=== PATIENT | female | born 1960 | race Caucasian/White ===

== ENCOUNTER → 2017-10-03 | Outpatient (CLI) | payer BC, OTHER ==
--- NOTE | 2017-10-03 12:52 | RAD ---
EXAM: Right knee, 3 views. HISTORY: Pain. COMPARISON: None. FINDINGS: Frontal, lateral and oblique views of the right knee are obtained. There is moderate medial and lateral and mild patellofemoral compartment spurring. There is medial compartment joint space narrowing and subchondral sclerosis. There is a trace joint effusion. IMPRESSION: 1. Moderate medial and lateral and mild patellofemoral compartment osteoarthritis. 2. Trace joint effusion. Electronically signed by: Bren Allen MD (10/03/2017 12:48 PM) [facility]
--- NOTE | 2017-10-03 13:54 | RAD ---
EXAM: Chest, 2 views. HISTORY: Positive tuberculin skin test. COMPARISON: None. FINDINGS: Frontal and lateral views of the chest are obtained. There is no infiltrate, effusion or pneumothorax. The heart is normal in size. IMPRESSION: No acute pulmonary finding or evidence of pulmonary tuberculosis. Electronically signed by: Bren Allen MD (10/03/2017 1:51 PM) [facility]
== END | disposition home or self-care (01) ==
LOC: PMG 10:35
PROVIDERS: ATTEND Physician Assistant Medical
DX: M17.11 Unilateral primary osteoarthritis, right knee (principal); R76.11 Nonspecific reaction to tuberculin skin test without active tuberculosis
CPT/HCPCS: 71046; 73562

== ENCOUNTER → 2017-10-10 | Outpatient (CLI) | payer BC, OTHER ==
--- NOTE | 2017-10-13 14:24 | RAD ---
DATE: 10/10/2017 EXAM: MAMMO RUSLAN SCREENING BILATERAL HISTORY: Routine screening COMPARISON: 10/07/2015 This study was interpreted with the benefit of Computerized Aided Detection (CAD). The breast parenchyma shows scattered fibroglandular densities. Breast parenchyma level B. FINDINGS: 2-D and 3-D tomosynthesis imaging was performed in CC and MLO projections. There is a 10 mm superficial nodule in the inferomedial right retroareolar region. It was not evident on the previous exam. No other new or enlarging breast densities are seen. Scattered benign type calcifications are present. No suspicious microcalcifications have developed. IMPRESSION: Small right retroareolar breast nodule. Sonographic evaluation is suggested. BI-RADS CATEGORY: 0 INCOMPLETE: NEEDS ADDITIONAL IMAGING EVALUATION AND/OR PRIOR MAMMOGRAMS FOR COMPARISON. RECOMMENDED FOLLOW-UP: ADD ADDITIONAL IMAGING PQRS compliance statement: Patient information was entered into a reminder system with a target due date for the next mammogram. Mammography is a sensitive method for finding small breast cancers, but it does not detect them all and is not a substitute for careful clinical examination. A negative mammogram does not negate a clinically suspicious finding and should not result in delay in biopsying a clinically suspicious abnormality. "Our facility is accredited by the [employer] Mammography Program."
== END | disposition home or self-care (01) ==
LOC: MAMMO 12:52
PROVIDERS: ATTEND Physician Assistant Medical
DX: Z12.31 Encounter for screening mammogram for malignant neoplasm of breast (principal); N63.41 Unspecified lump in right breast, subareolar
CPT/HCPCS: 77063; 77067

== ENCOUNTER → 2017-10-18 | Outpatient (CLI) | payer BC, OTHER ==
--- NOTE | 2017-10-18 13:50 | RAD ---
Right breast ultrasound, 10/18/2017: History: Suspicious screening study The right retroareolar region was carefully scanned. There is a small hypoechoic nodule present in the medial retroareolar region which appears to correspond to the mammographic finding. It measures 7 x 7 x 4 mm. It is mildly heterogeneous with a small internal echogenic focus. Its margins are slightly lobulated. Portions of the nodule are intermittently obscured by shadowing from the nipple. It has the appearance of a solid nodule, possibly a fibroadenoma. A circumscribed malignancy cannot be excluded. No other abnormality is seen. IMPRESSION: Small solid appearing retroareolar nodule as described above. Ultrasound-guided biopsy is suggested for further evaluation. BI-RADS 4-suspicious abnormality. Note: The patient was notified of our recommendation for biopsy by the lead cytogenetic technologist at the time of the exam. She will follow-up with the ordering provider.
== END | disposition home or self-care (01) ==
LOC: US 12:48
PROVIDERS: ATTEND Physician Assistant Medical
DX: N63.10 Unspecified lump in the right breast, unspecified quadrant (principal)
CPT/HCPCS: 76641